=== PATIENT | female | born 1980 | race Caucasian/White ===

== ENCOUNTER 2020-10-07 17:18 | Emergency (ER) | payer OTHER ==
[~2020-10-07] VITALS: Ht 154.9 cm; Wt 67.7 kg
[~2020-10-07 17:18] MED LIST: ALLEGRA 60MG TA60 MG PO; FLONASE NASAL S16 GM NS; ZOFRAN ODT4 MG PO
[2020-10-07 17:56] LABS: COLLECTION METHOD CLEAN CATCH
[2020-10-07 18:13] LABS: MUCOUS Present /lpf; PH 5 (5-8); URINE APPEARANCE Hazy; URINE BACTERIA None Seen /hpf; URINE BILIRUBIN Negative (NEGATIVE); URINE BLOOD Negative (NEGATIVE); URINE COLOR Yellow; URINE GLUCOSE Negative (NEGATIVE); URINE KETONE 1+ (NEGATIVE); URINE LEUKOCYTE ESTERASE Negative (NEGATIVE); URINE NITRATE Negative (NEGATIVE); URINE PROTEIN(semi-quant) Negative (NEGATIVE); URINE RBC 0-2 /hpf; URINE UROBILINOGEN Negative (NEGATIVE)
[2020-10-07 19:19] LABS: BASO % 0.4 % (0.0-2.0); EOS % 0.4 % (0-4.0); GRAN # 7.5 (1.4-6.5); GRAN % 70.4 % (42.2-75.2); HEMATOCRIT 37.6 % (37.0-47.0); HEMOGLOBIN 12.4 g/dl (12.5-16.0); LYMPH # 2.5 (1.2-3.4); LYMPH % 23.1 % (20.0-51.0); MEAN CELL VOLUME 93 fl (80.0-100.0); MEAN CORPUSCULAR HEMOGLOBIN 31 pg (27.0-31.0); MEAN CORPUSCULAR HGB CONC 33 g/dl (33.0-37.0); MONO # 0.6 (0.1-0.6); MONO % 5.5 % (1.7-9.3); PLATELET COUNT 324 K/mm3 (130-400); RED BLOOD COUNT 4.03 M/mm3 (4.10-5.30); REDCELL DISTRIBUTION WIDTH-CV 13.2 % (11.5-14.5)
[2020-10-07 19:24] LABS: ALBUMIN 4.2 gm/dL (3.5-5.0); BILIRUBIN,TOTAL 0.3 mg/dL (0.0-1.0); CALCIUM 9.6 mg/dL (8.4-10.2); CREATININE, serum 0.8 (0.52-1.25); POTASSIUM 3.8 mmol/L (3.4-5.0); TOTAL PROTEIN 7.5 gm/dL (6.4-8.2)
[2020-10-07] MEDS ORDERED: FLEXERIL 1010 MG/TAB PO (19:39)
[2020-10-07 19:54] VITALS: BP 116/73; PULSE 71; TEMP 97.5
== END 2020-10-07 19:54 | disposition home or self-care (01) ==
LOC: COL.ER 17:18
PROVIDERS: Emergency Medicine; Nurse Practitioner Primary Care
DX: S39.012A Strain of muscle, fascia and tendon of lower back, initial encounter (principal); N89.8 Other specified noninflammatory disorders of vagina; R11.0 Nausea; Z88.0 Allergy status to penicillin; Z88.1 Allergy status to other antibiotic agents; Z88.2 Allergy status to sulfonamides; Z79.51 Long term (current) use of inhaled steroids; Z32.02 Encounter for pregnancy test, result negative; Z63.5 Disruption of family by separation and divorce; X50.0XXA Overexertion from strenuous movement or load, initial encounter

== ENCOUNTER 2021-12-23 02:55 | Emergency (ER) | payer OTHER ==
[~2021-12-23] VITALS: Ht 154.9 cm; Wt 77.3 kg
[~2021-12-23 02:55] MED LIST changes: +FLEXERIL 1010 MG/TAB PO
[2021-12-23] MEDS ORDERED: MACROBID 1100 MG/CAP PO (03:01)
[2021-12-23 03:02] VITALS: TEMP 97.7
[2021-12-23] MEDS ORDERED: ATARAX50 MG PO (03:05)
[2021-12-23] MEDS ORDERED: BUSPAR DIVIDOSE15 MG PO (03:05)
[2021-12-23] MEDS ORDERED: PYRIDIUM200 M1 PO (03:05)
[2021-12-23 03:29] LABS: BASO # 0.1 K/mm3 (0.0-0.2); BASO % 0.7 % (0.0-2.0); EOS # 0.2 K/mm3 (0.0-0.7); EOS % 2.9 % (0.0-4.0); GRAN # 3.6 K/mm3 (1.4-6.5); GRAN % 47.4 % (42.2-75.2); HEMATOCRIT 40.6 % (37.0-47.0); HEMOGLOBIN 13.3 g/dl (12.5-16.0); LYMPH # 3.1 K/mm3 (1.2-3.4); LYMPH % 40.9 % (20.0-51.0); MEAN CELL VOLUME 91 fl (80.0-100.0); MEAN CORPUSCULAR HEMOGLOBIN 30 pg (27-31); MEAN CORPUSCULAR HGB CONC 33 g/dl (33.0-37.0); MONO # 0.6 K/mm3 (0.1-0.6); PLATELET COUNT 362 K/mm3 (130-400); RED BLOOD COUNT 4.44 M/mm3 (4.10-5.30); REDCELL DISTRIBUTION WIDTH-CV 13.2 % (11.5-14.5)
[2021-12-23 03:46] LABS: ALBUMIN 4.4 gm/dL (3.5-5.0); BILIRUBIN,TOTAL 0.6 mg/dL (0.2-1.2); CALCIUM 9.4 mg/dL (8.4-10.2); CREATININE, serum 0.95 mg/dL (0.57-1.11); POTASSIUM 3.9 mmol/L (3.5-4.5); TOTAL PROTEIN 7.7 gm/dL (6.2-8.1)
[2021-12-23 04:40] LABS: COLLECTION METHOD CLEAN CATCH
[2021-12-23 04:47] LABS: PH 6 (5-8); URINE APPEARANCE Clear (CLEAR/HAZY); URINE BACTERIA None Seen /hpf (NONE SEEN); URINE BILIRUBIN Negative (NEGATIVE); URINE BLOOD Negative (NEGATIVE); URINE COLOR Amber (YELLOW); URINE GLUCOSE Negative (NEGATIVE); URINE KETONE Negative (NEGATIVE); URINE LEUKOCYTE ESTERASE Negative (NEGATIVE); URINE NITRATE Positive (NEGATIVE); URINE PROTEIN(semi-quant) Negative (NEGATIVE); URINE RBC 0-2 /hpf (0-2); URINE UROBILINOGEN >=4.0 (NEGATIVE)
[2021-12-23] MEDS ORDERED: CIPRO 500MG TA500 MG PO (05:22)
[2021-12-23] MEDS ORDERED: TORADOL 10MG TA10 MG PO (05:39)
[2021-12-23 06:46] VITALS: BP 129/73; PULSE 67
== END 2021-12-23 07:46 | disposition home or self-care (01) ==
LOC: COL.ER 02:55
PROVIDERS: Emergency Medicine
DX: N12 Tubulo-interstitial nephritis, not specified as acute or chronic (principal); N39.0 Urinary tract infection, site not specified; Z88.0 Allergy status to penicillin; Z28.310 Unvaccinated for COVID-19
CPT/HCPCS: J0744; J1885; J7030